=== PATIENT | female | born 1995 | race Caucasian/White ===

== ENCOUNTER 2017-09-25 23:03 | Outpatient (CLI) | payer OTHER ==
[2017-09-26 00:55] LABS: APPEARANCE,URINE SLIGHTLY-CLOUDY; BILIRUBIN,URINE NEGATIVE (NEGATIVE); COLOR,URINE YELLOW; GLUCOSE, URINE NEGATIVE (NEGATIVE); KETONES,URINE 20 mg/dL (NEGATIVE); LEUKOCYTE ESTERASE,URINE TRACE (NEGATIVE); NITRITE,URINE NEGATIVE (NEGATIVE); PROTEIN,URINE NEGATIVE (NEGATIVE); URINE SPECIFIC GRAVITY 1.019; UROBILINOGEN,URINE NEGATIVE mg/dL (<2.0)
[2017-09-26 01:16] LABS: URINE AMPHETAMINES SCREEN NEGATIVE; URINE BARBITURATES SCREEN NEGATIVE; URINE BENZODIAZEPINES SCREEN NEGATIVE; URINE COCAINE SCREEN NEGATIVE; URINE METHADONE SCREEN NEGATIVE; URINE PHENCYCLIDINE SCREEN NEGATIVE
[2017-09-26 01:18] LABS: URINE MARIJUANA (THC) SCREEN UNCONFIRMED POSITIVE
== END 2017-09-26 01:20 | disposition home or self-care (01) ==
LOC: LC 23:03
PROVIDERS: ATTEND Obstetrics & Gynecology Gynecology
PROC: 4A1HXCZ Monitoring of Products of Conception, Cardiac Rate, External Approach (ICD-10-PCS; principal; 2017-09-25)
DX: O99.89 Other specified diseases and conditions complicating pregnancy, childbirth and the puerperium (principal); M54.30 Sciatica, unspecified side; Z3A.28 28 weeks gestation of pregnancy
CPT/HCPCS: 59899; 81001; 80307; G0480 ×2

== ENCOUNTER 2018-01-02 21:14 | Outpatient (CLI) | payer OTHER ==
[2018-01-02 21:43] LABS: APPEARANCE,URINE SLIGHTLY-CLOUDY; BILIRUBIN,URINE NEGATIVE (NEGATIVE); COLOR,URINE YELLOW; GLUCOSE, URINE NEGATIVE (NEGATIVE); KETONES,URINE NEGATIVE (NEGATIVE); LEUKOCYTE ESTERASE,URINE TRACE (NEGATIVE); NITRITE,URINE NEGATIVE (NEGATIVE); PROTEIN,URINE NEGATIVE (NEGATIVE); URINE SPECIFIC GRAVITY 1.017; UROBILINOGEN,URINE NEGATIVE mg/dL (<2.0)
[2018-01-02 21:59] LABS: URINE AMPHETAMINES SCREEN NEGATIVE; URINE BARBITURATES SCREEN NEGATIVE; URINE BENZODIAZEPINES SCREEN NEGATIVE; URINE COCAINE SCREEN NEGATIVE; URINE MARIJUANA (THC) SCREEN NEGATIVE; URINE METHADONE SCREEN NEGATIVE; URINE PHENCYCLIDINE SCREEN NEGATIVE
--- NOTE | 2018-01-02 22:45 | Non Stress Test Report ---
Non Stress Test Datetime Report Generated by CPN: 01/02/2018 22:45 DEMOGRAPHIC Test Number: 1 EGA NST: 39.2 INDICATION Indication for Study: Ordered by Provider MONITORING Monitor Explained: Monitor Explained; Test Explained; Patient Verbalized Understanding Time on Monitor: 01/02/2018 21:32 Time off Monitor: 01/02/2018 22:31 NST Duration: 59 NST INTERVENTIONS NST Interventions: PO Hydration; Reposition Patient Physician Notified NST: Dr. Hardy BABY A: [id number] BABY A Movement : Present Contraction Frequency : irregular FHR Baseline : 135 Accelerations : 15X15 Decelerations : None Variability : Moderate 6-25bpm NST Review: Meets Criteria for Reactive NST NST Review and Verified By : DWAINE Freeman NST Results: Reactive NST REPORT Report Trigger: Send Report
== END 2018-01-02 22:44 | disposition home or self-care (01) ==
LOC: LC 21:14
PROVIDERS: ATTEND Obstetrics & Gynecology
PROC: 4A1HXCZ Monitoring of Products of Conception, Cardiac Rate, External Approach (ICD-10-PCS; principal; 2018-01-02)
DX: O47.1 False labor at or after 37 completed weeks of gestation (principal); Z3A.39 39 weeks gestation of pregnancy
CPT/HCPCS: 59025; 80307; 81005

== ENCOUNTER 2018-01-03 05:29 | Outpatient (CLI) | payer OTHER ==
[2018-01-03 06:18] LABS: APPEARANCE,URINE SLIGHTLY-CLOUDY; BILIRUBIN,URINE NEGATIVE (NEGATIVE); COLOR,URINE YELLOW; GLUCOSE, URINE NEGATIVE (NEGATIVE); KETONES,URINE NEGATIVE (NEGATIVE); LEUKOCYTE ESTERASE,URINE SMALL (NEGATIVE); NITRITE,URINE NEGATIVE (NEGATIVE); PROTEIN,URINE NEGATIVE (NEGATIVE); URINE SPECIFIC GRAVITY 1.017; UROBILINOGEN,URINE NEGATIVE mg/dL (<2.0)
[2018-01-03 06:26] LABS: URINE AMPHETAMINES SCREEN NEGATIVE; URINE BARBITURATES SCREEN NEGATIVE; URINE BENZODIAZEPINES SCREEN NEGATIVE; URINE COCAINE SCREEN NEGATIVE; URINE MARIJUANA (THC) SCREEN NEGATIVE; URINE METHADONE SCREEN NEGATIVE; URINE PHENCYCLIDINE SCREEN NEGATIVE
[2018-01-03] MEDS ORDERED: HYDROXYZINE PAMOATE 50 MG CAPSULE ONE (07:16)
[2018-01-03] MEDS ORDERED: HYDROXYZINE PAMOATE 50 MG CAPSULE PO ONE (07:17)
[2018-01-03 09:29] LABS: CHLAM PCR NOT DETECTED (NOT DETECT); GON PCR NOT DETECTED (NOT DETECT)
== END 2018-01-03 07:25 | disposition home or self-care (01) ==
LOC: LC 05:29
PROVIDERS: ATTEND Obstetrics & Gynecology
PROC: 4A1HXCZ Monitoring of Products of Conception, Cardiac Rate, External Approach (ICD-10-PCS; principal; 2018-01-03)
DX: O47.1 False labor at or after 37 completed weeks of gestation (principal); Z3A.39 39 weeks gestation of pregnancy
CPT/HCPCS: 59025; 80307; 81005; 87491; 87591

== ENCOUNTER 2018-01-03 12:18 | Inpatient (IN) | payer OTHER ==
[2018-01-03] MEDS ORDERED: PENICILLIN G POTASSIUM 5,000,000 UNIT in DEXTROSE 5%-WATER 100 ML IV ONE (12:22)
[2018-01-03] MEDS ORDERED: RINGERS SOLUTION,LACTATED 1,000 ML IV PRN (12:22)
[2018-01-03] MEDS ORDERED: RINGERS SOLUTION,LACTATED 1,000 ML IV ONE (12:22)
[2018-01-03] MEDS ORDERED: LIDOCAINE 1% INJ-PF (10 MG/ML) 30 ML SDV ONE (12:26)
[2018-01-03] MEDS ORDERED: MISOPROSTOL 0.2 MG TABLET ONE (12:26)
[2018-01-03] MEDS ORDERED: OXYTOCIN/NORMAL SALINE 20 UNIT/1,000 ML RTUINJ ONE (12:27)
[2018-01-03] MEDS ORDERED: PENICILLIN G-K 5 MILLION UNIT VIAL ONE ×2 (12:27→16:06)
[2018-01-03] MEDS ORDERED: EPHEDRINE SULFATE INJ 50 MG/1 ML AMPULE ONE (12:58)
[2018-01-03] MEDS ORDERED: BUPIVACAINE HCL 0.5 % INJ/PF 30 ML SDV ONE (12:59)
[2018-01-03] MEDS ORDERED: FENTANYL/BUPIVACAINE/NS/PF 300 MCG/150 ML RTUINJ EPI ONE (12:59)
--- NOTE | 2018-01-03 13:01 | Admission Physical ---
Datetime Report Generated by CPN: 01/03/2018 13:01 CURRENT ADMISSION Chief Complaint: Uterine Contractions Admit Impression : Term, Intrauterine ; Active Labor; Intact Membranes Admit Plan: Admit to Unit; Initiate Labor Protocol ALLERGIES Medication Allergies: No Medication Allergies: No Known Allergies (01/03/2018) Latex: No Latex Allergies Food Allergies: cashews Environmental Allergies: N/A OBSTETRICAL HISTORY EDC: 01/07/2018 00:00 : 3 Para: 0 Term: 0 : 0 SAB: 2 IAB: 0 Ectopic: 0 Livin Cesareans: 0 VBACs: 0 Multiple Births: 0 Gestational Diabetes: No Rh Sensitization: No Incompetent Cervix: No JCARLOS: No Infertility: No ART Treatment: No Uterine Anomaly: No IUGR: No Hx Previous C/S: No Macrosomia: No Hx Loss/Stillborn: No PIH: No Hx : No Placenta Previa/Abruption: No Depression/PP Depression: No PTL/PROM: No Post Hemorrhage: No Current Procedures: Ultrasound; NST Obstetrical History Comments: G1- SAB G2-SAB G3-current (Annotations: Data stored by [facility] on behalf of user) SEE RECORDS Alcohol: No Marijuana : No Cocaine: No Other Illicit Drugs: No Cigarettes: Never Smoker. [id number] MEDICAL HISTORY Diabetes: No Blood Transfusion: No Pulmonary Disease (Asthma, TB): No Breast Disease: No Hypertension: No Natural Gas Technician Surgery: No Heart Disease: No Hosp/Surgery: No Autoimmune Disorder: No Anesthetic Complications: No Kidney Disease: No Abnormal Pap Smear: No Neuro/Epilepsy: No Psychiatric Disorders: No Other Medical Diseases: No Hepatitis/Liver Disease: No Significant Family History: No Varicosities/Phlebitis: No Trauma/Violence : No Thyroid Dysfunction: No INFECTIOUS HISTORY Gonorrhea: No Genital Herpes: No Chlamydia: No Tuberculosis: No Syphilis: No Hepatitis: No HIV/AIDS Exposure: No Rash or Viral Illness: No HPV: No PHYSICAL EXAM General: Normal HEENT: Normal Neurologic: Normal Thyroid: Deferred Heart: Normal Lungs: Normal Breast: Deferred Back: Normal Abdomen: Normal Genitourinary Exam: Normal Extremities: Normal DTRs: Normal Pelvic Type: Adequate Vital Signs: Reviewed VAGINAL EXAM Dilatation: 6 Effacement: 80 Station: -1 Contraction Comments: q 2-3 MEMBRANES Membranes: Intact FETUS A EGA: 39.3 Monitoring: External US FHR- Baseline: 125 Variability: Moderate 6-25bpm Accelerations: 15X15 Decelerations: None Presentation: Vertex Admit Comment: 22yo at 39+3ega presents for regular uterine contractions in active labor. HICL patient who was late to care - dated by US at 29wks. Unsure LMP. Rh negative. Rhogam given at 10/15/2017. Varicella NI - needs vaccination pp. GBS unknown due to poor compliance with care. PCN for GBS prophy. Platlets 170 on 01/01/2018. Pt desires epidural. Antcipate . PLANS FOR LABOR AND DELIVERY Labor and Delivery: None Pain Management: None Feeding Preference: Breast Benefit of Breast Feed Discussed: Yes INFORMED CONSENT Informed Consent Obtained: Vaginal Delivery; Risks, Benefits and Alternatives Discussed Signature: with User ID: [email or web address]
[2018-01-03 14:15] LABS: HEMATOCRIT 33.7 % (36.0-47.0); HEMOGLOBIN 11.5 g/dL (12.0-15.5); MEAN CORPUSCULAR HEMOGLOBIN 29.4 pg (27.0-33.4); MEAN CORPUSCULAR HGB CONC 34.2 g/dL (32.0-36.0); MEAN CORPUSCULAR VOLUME 86 fl (80-97); PLATELET COUNT 195 10^3/uL (150-450); RED BLOOD COUNT 3.92 10^6/uL (3.72-5.28); RED CELL DISTRIBUTION WIDTH 14.6 % (11.5-14.0); WHITE BLOOD COUNT 19.3 10^3/uL (4.0-10.5)
[2018-01-03 14:32] LABS: ABSOLUTE MONOCYTES # (MANUAL) 0.6 10^3/uL (0.1-1.4); ABSOLUTE NEUTROPHILS# (MANUAL) 17.8 10^3/uL (1.7-8.2); BAND NEUTROPHILS % (MANUAL) 1 % (3-5); BASOPHILS % (MANUAL) 0 % (0-2); EOSINOPHILS % (MANUAL) 0 % (0-6); LYMPHOCYTES % (MANUAL) 5 % (13-45); MONOCYTES % (MANUAL) 3 % (3-13); SEGMENTED NEUTROPHILS % (MAN) 91 % (42-78); TOTAL CELLS COUNTED 100
[2018-01-03 14:33] LABS: ANISOCYTOSIS SLIGHT; OVALOCYTES 1+; PLATELET COMMENT ADEQUATE; POIKILOCYTOSIS 1+; TEAR DROP CELLS SLIGHT
[2018-01-03] MEDS ORDERED: NORMAL SALINE 250 ML IV PRN (15:01)
[2018-01-03] MEDS: PENICILLIN G POTASSIUM 2,500,000 UNIT in DEXTROSE 5%-WATER 50 ML IV SCH ×2 (16:18→23:08)
[2018-01-03] MEDS ORDERED: OXYTOCIN/NORMAL SALINE 20 UNIT/1,000 ML RTUINJ IV PRN ×2 (17:01→20:39)
[2018-01-03] MEDS ORDERED: MAG HYDROX/AL HYDROX/SIMETH SUSP 30 ML UDCUP ONE (18:24)
[2018-01-03] MEDS ORDERED: ZOLPIDEM TARTRATE 5 MG TABLET PO PRN (20:39)
[2018-01-03] MEDS ORDERED: PROMETHAZINE HCL 25 MG TABLET PO PRN (20:39)
[2018-01-03] MEDS ORDERED: NA PHOS,M-B/NA PHOS,DI-BA (ADULT) 133 ML ENEMA PR PRN (20:39)
[2018-01-03] MEDS ORDERED: MEASLES,MUMPS&RUBELLA VACC/PF 0.5 ML VIAL SUBCUT PRN (20:39)
[2018-01-03] MEDS ORDERED: PROMETHAZINE HCL 25 MG SUPP.RECT PR PRN (20:39)
[2018-01-03] MEDS ORDERED: DIBUCAINE 1% OINTMENT 28 GM TP PRN (20:39)
[2018-01-03] MEDS ORDERED: DIPH/PERTUSS(ACELL)/TETANUS VAC/PF 0.5 ML SYR (>=10YO) IM PRN (20:39)
[2018-01-03] MEDS ORDERED: MAGNESIUM HYDROXIDE SUSP 30 ML UDCUP PO PRN (20:39)
[2018-01-03] MEDS ORDERED: MISOPROSTOL 0.2 MG TABLET PR ONE (20:39)
[2018-01-03] MEDS ORDERED: ACETAMINOPHEN WITH CODEINE #3 TABLET PO PRN ×2 (20:39)
[2018-01-03] MEDS ORDERED: PROMETHAZINE HCL INJ 25 MG/1 ML VIAL IV PRN (20:39)
[2018-01-03] MEDS ORDERED: PSEUDOEPHEDRINE HCL 30 MG TABLET PO PRN (20:39)
[2018-01-03] MEDS ORDERED: ACETAMINOPHEN 325 MG TABLET PO PRN (20:39)
[2018-01-03] MEDS ORDERED: DIPHENHYDRAMINE HCL 25 MG CAPSULE PO PRN (20:39)
[2018-01-03] MEDS ORDERED: GLYCERIN/WITCH HAZEL LEAF 1 EACH MED..PAD TP PRN (20:39)
[2018-01-03] MEDS ORDERED: BENZOCAINE/MENTHOL AEROSOL SPRAY 56 ML TOP PRN (20:39)
--- NOTE | 2018-01-03 20:40 | Warning Signs in Babies ---
VOD Warning Signs Datetime Report Generated by [facility]: 01/03/2018 20:40 VOD#608 -Warning Signs in Babies: Needs to be viewed. (09/25/2017 23:24:Siomara Blackburn RN)
--- NOTE | 2018-01-03 22:05 | Delivery Summary ---
Del Sum A-C Datetime Report Generated by CPN: 01/03/2018 22:05 DELIVERY PERSONNEL DELIVERY PERSONNEL: [id number] Delivery Doctor:: Merry Oneal MD Anesthesiologist:: Esau Adhikari MD Labor and Delivery Nurse:: Siomara Blackburn RNfender mechanic apprentice Nurse:: Ml Toure RN Restaurant Delivery Driver:: Krystal Corrigan RN Nursery Nurse:: Gloria Wayne RN Manager Lvn/TEARER PRESS CLIPPING: Marianne Enamorado, PLASTER APPLICATOR MATERNAL INFORMATION Delivery Anesthesia: Epidural Medications After Delivery: Pitocin Drip 20 Units/1000ml NSS; Cytotec 1000mcg Per Rectum/Vagina Estimated Blood Loss (ml): 300 Maternal Complications: None Provider Comments: VMI delivered in ELKE presentation with loose nuchal cord reduced easily. Shoulders and body delivered without difficulty. Cord doubly clamped and cut and infant to maternal abd for NRP. FF at U. Good hemostasis. laceration repaired in usual fashion. Mother and baby stable upon provider leaving the room. LABOR SUMMARY EDC: 01/07/2018 00:00 No. Babies in Womb: 1 Attempted: No Labor Anesthesia: Epidural LABOR INFORMATION Reason for Induction: Not Applicable Onset of Labor: 01/03/2018 12:25 Complete Dilatation: 01/03/2018 18:45 Oxytocin: Augmentation Group B Beta Strep: unknown Antibiotics # of Doses: 2 Antibiotics Time of Last Dose: 1612 Name of Antibiotic Given: Penicillin Steroids Given: None Reason Steroids Not Administered: Not Applicable MEMBRANES Membranes Rupture Method: Artificial Rupture of Membranes: 01/03/2018 16:26 Length of Rupture (hr): 3.47 Amniotic Fluid Color: Clear Amniotic Fluid Amount: Small STAGES OF LABOR Stage 1 hr: 6 Stage 1 min: 20 Stage 2 hr: 1 Stage 2 min: 9 Stage 3 hr: 0 Stage 3 min: 2 Total Time in Labor hr: 7 Total Time in Labor min: 31 VAGINAL DELIVERY Episiotomy: None Laceration #1: Vaginal Laceration Extension #1: Second Degree Laceration Repair: Yes Laceration Repair Note: 2nd degree and left vaginal sidewall laceration repaired in the usual fashion Sponge Count Correct: Yes Sharps Count Correct: Yes CSECTION DELIVERY Primary Indication: N/A Secondary Indication: N/A CSection Incidence: N/A Labor: N/A Elective: N/A CSection Incision: N/A BABY A INFORMATION Infant Delivery Date/Time: 01/03/2018 19:54 Method of Delivery: Vaginal Born in Route : No : N/A Forceps: N/A Vacuum Extraction: N/A Shoulder Dystocia : No PRESENTATION/POSITION BABY A Presentation: Cephalic Cephalic Presentation: Vertex Vertex Position: Right Occipital Anterior Breech Presentation: N/A PLACENTA INFORMATION BABY A Placenta Delivery Time : 01/03/2018 19:56 Placenta Method of Delivery: Spontaneous Placenta Status: Delivered SCORES BABY A Heart Rate 1 min: >100 bpm Resp Effort 1 min: Good Cry Reflex Irritability 1 min: Cough or Sneeze or Pulls Away Muscle Tone 1 min: Active Motion Color 1 min: Body [place], Extremities Blue Resuscitation Effort 1 min: Tactile Stimulation SCORE 1 MIN: 9 Heart Rate 5 min: >100 bpm Resp Effort 5 min: Good Cry Reflex Irritability 5 min: Cough or Sneeze or Pulls Away Muscle Tone 5 min: Active Motion Color 5 min: Body [place], Extremities Blue Resuscitation Effort 5 min: Tactile Stimulation SCORE 5 MIN: 9 INFORMATION BABY A Gestational Age at Delivery: 39.3 Gestational Status: Full Term- 39- 40.6 Weeks Outcome : Liveborn Condition : Stable Infant Sex: Male IDENTIFICATION BABY A Verification Date/Time: 01/03/2018 20:00 ID Band Number: [id number] Mother's Name Verified: Yes RN Verifying : J, RN Additional Verifying Personnel: F.Enamorado, ST WEIGHT/LENGTH BABY A Infant Birthweight (gm): 3430 Weight (lb): 7 Weight (oz): 9 Infant Length (in): 21.00 Infant Length (cm): 53.34 CORD INFORMATION BABY A No. Cord Vessels: 3 Nuchal Cord : Around Neck x1, Loose Cord Blood Taken: Yes-For Eval (Mom's Blood Type - or O+) Suction: None ASSESSMENT BABY A Complications: Multiple Late Decels Physical Findings at Delivery: Within Normal Limits Respirations: Appears Normal Skin to Skin: Yes Digital Media Specialist/ALS Called : No Infant Care By: L. Rosana RN Transferred To: Remains with Mother BABY B INFORMATION : N/A SIGNATURES Signature: with User ID: [email or web address]
[2018-01-03] MEDS: FAMOTIDINE 20 MG TABLET PO SCH (23:11)
[2018-01-03] MEDS: IBUPROFEN 800 MG TABLET PO SCH (23:11)
[2018-01-04] MEDS: PENICILLIN G POTASSIUM 2,500,000 UNIT in DEXTROSE 5%-WATER 50 ML IV SCH ×2 (02:19→05:27)
[2018-01-04] MEDS: IBUPROFEN 800 MG TABLET PO SCH ×3 (05:28→22:02)
[2018-01-04 07:51] LABS: HEMATOCRIT 31.5 % (36.0-47.0); HEMOGLOBIN 10.5 g/dL (12.0-15.5); MEAN CORPUSCULAR HEMOGLOBIN 29.2 pg (27.0-33.4); MEAN CORPUSCULAR HGB CONC 33.5 g/dL (32.0-36.0); MEAN CORPUSCULAR VOLUME 87 fl (80-97); PLATELET COUNT 194 10^3/uL (150-450); RED BLOOD COUNT 3.61 10^6/uL (3.72-5.28); RED CELL DISTRIBUTION WIDTH 14.7 % (11.5-14.0); WHITE BLOOD COUNT 16.1 10^3/uL (4.0-10.5)
[2018-01-04] MEDS: PRENATAL VITAMIN W DHA CAPSULE PO SCH (09:28)
[2018-01-04] MEDS: FERROUS SULFATE 325 MG TABLET PO SCH ×2 (09:28→17:59)
[2018-01-04] MEDS: SENNOSIDES/DOCUSATE 8.6-50 MG 1 EACH TABLET PO SCH (09:28)
[2018-01-04] MEDS: DOCUSATE SODIUM 100 MG CAPSULE PO SCH ×2 (09:28→17:59)
[2018-01-04] MEDS: FAMOTIDINE 20 MG TABLET PO SCH ×2 (09:28→22:02)
[2018-01-04] MEDS ORDERED: PENICILLIN G-K 5 MILLION UNIT VIAL IV SCH (10:00)
--- NOTE | 2018-01-04 11:08 | PDOC PROGRESS REPORT ---
Subjective-OB Progress Note for:: 01/04/18 Subjective: tolerating diet, voiding without difficulty, bleeding slowing, pain controlled with current meds, no needs expressed, without difficulty Physical Exam (OB) Vital Signs: Temp Pulse Resp BP Pulse Ox 97.8 F 70 16 98/55 L 100 01/04/18 07:28 01/04/18 07:28 01/04/18 07:28 01/04/18 07:28 01/04/18 07:28 Intake & Output 01/03/18 01/04/18 01/05/18 06:59 06:59 06:59 Intake Total 2150 Balance 2150 Weight 64.5 kg - Abdomen Description: Soft, Flat Fundal Description: Firm, Midline Fundal Height: u/u - u/2 - Abdominal Distension: No distension Tenderness: Nontender - Extremities Lower extremities: Catrachito's sign - neg Calf: Normal, Nontender Objective-Diagnostic Laboratory: 01/04/18 07:37 01/03/18 01/03/18 01/04/18 13:49 13:58 07:37 WBC 19.3 H 16.1 H RBC 3.92 3.61 L Hgb 11.5 L 10.5 L Hct 33.7 L 31.5 L MCV 86 87 MCH 29.4 29.2 MCHC 34.2 33.5 RDW 14.6 H 14.7 H Plt Count 195 194 Seg Neutrophils % Not Reportable Lymphocytes % Not Reportable Monocytes % Not Reportable Eosinophils % Not Reportable Basophils % Not Reportable Absolute Neutrophils Not Reportable Absolute Lymphocytes Not Reportable Absolute Monocytes Not Reportable Absolute Eosinophils Not Reportable Absolute Basophils Not Reportable Blood Type A NEGATIVE Antibody Screen POSITIVE Assessment and Plan(PN) - Assessment and Plan (1) Normal vaginal delivery Is this a current diagnosis for this admission?: Yes - Time Spent with Patient Time with patient: Less than 15 minutes Medications reviewed and adjusted accordingly: Yes - Disposition Anticipated Discharge: Home Within: within 24 hours
[2018-01-04] MEDS ORDERED: VARICELLA VACC/PF (1350 UNIT/0.5 ML) 0.5 ML VIAL SUBCUT ONE (12:00)
[2018-01-04] MEDS ORDERED: VARICELLA VACC/PF (1350 UNIT/0.5 ML) 0.5 ML VIAL SUBCUT PRN (12:18)
[2018-01-05] MEDS: IBUPROFEN 800 MG TABLET PO SCH ×2 (06:02→15:24)
[2018-01-05] MEDS: PRENATAL VITAMIN W DHA CAPSULE PO SCH (09:36)
[2018-01-05] MEDS: FAMOTIDINE 20 MG TABLET PO SCH (09:36)
[2018-01-05] MEDS: DOCUSATE SODIUM 100 MG CAPSULE PO SCH (09:36)
[2018-01-05] MEDS: FERROUS SULFATE 325 MG TABLET PO SCH (09:36)
[2018-01-05] MEDS: SENNOSIDES/DOCUSATE 8.6-50 MG 1 EACH TABLET PO SCH (09:36)
--- NOTE | 2018-01-05 10:04 | PDOC DISCHARGE SUMMARY ---
Final Diagnosis Discharge Date: 01/05/18 - Final Diagnosis (1) Normal vaginal delivery Is this a current diagnosis for this admission?: Yes Discharge Data - Discharge Medication Prescriptions: Ibuprofen [Motrin 800 mg Tablet] 800 mg PO Q8 #60 tablet Home Medications: Prenat 115/Iron Fum/Folic/Dss [ 19 Tablet] 1 each PO DAILY 09/25/17 Ibuprofen [Motrin 800 mg Tablet] 800 mg PO Q8 #60 tablet 01/05/18 Reason(s) for Admission: Onset of Labor Intrapartum Procedure(s): Spontaneous Vaginal Delivery Laceration-Degree: 2nd - Diagnosis Test Laboratory: Temp Pulse Resp BP Pulse Ox 97.5 F 66 15 109/64 98 01/05/18 08:12 01/05/18 08:12 01/05/18 08:12 01/05/18 08:12 01/05/18 08:12 01/03/18 01/04/18 13:49 07:37 RBC 3.92 3.61 L Hgb 11.5 L 10.5 L Hct 33.7 L 31.5 L - Discharge information/Instructions Discharge Activity: Balance Activity w/Rest, Pelvic Rest Discharge Diet: Regular Disposition: HOME, SELF-CARE Follow up with: [facility] [place]
[2018-01-05 14:34] VITALS: BP 105/63
== END 2018-01-05 15:55 | disposition home or self-care (01) | DRG 807 ==
LOC: LC 12:18 → LR 12:27 → 2S 22:12
PROVIDERS: ADMIT Student in an Organized Health Care Education/Training Program; ATTEND Student in an Organized Health Care Education/Training Program
PROC: 10E0XZZ Delivery of Products of Conception, External Approach (ICD-10-PCS; principal; 2018-01-03)
PROC: 0KQM0ZZ Repair Perineum Muscle, Open Approach (ICD-10-PCS; 2018-01-03)
PROC: 3E0234Z Introduction of Serum, Toxoid and Vaccine into Muscle, Percutaneous Approach (ICD-10-PCS; 2018-01-05)
DX: O36.0930 Maternal care for other rhesus isoimmunization, third trimester, not applicable or unspecified (principal); Z37.0 Single live birth; O69.81X0 Labor and delivery complicated by cord around neck, without compression, not applicable or unspecified; O70.1 Second degree perineal laceration during delivery; O76 Abnormality in fetal heart rate and rhythm complicating labor and delivery; Z3A.39 39 weeks gestation of pregnancy; Z23 Encounter for immunization
CPT/HCPCS: 36415; 85025; 85027; 86592; 86850; 86870; 86900; 86901; 86920; 86922; 90471; 90686; 90715; 94760; G0008; J2540; J2590; J3010; J3490

== ENCOUNTER 2018-10-24 22:10 | Emergency (ER) | payer OTHER ==
[2018-10-24 22:33] VITALS: BP 124/93
== END 2018-10-25 01:20 | disposition left against medical advice (07) ==
LOC: ER 22:10
DX: T14.8XXA Other injury of unspecified body region, initial encounter (principal); W54.0XXA Bitten by dog, initial encounter

== ENCOUNTER 2018-10-28 01:37 | Emergency (ER) | payer BC, OTHER ==
--- NOTE | 2018-10-28 02:59 | RADIOLOGY REPORT (SQ) ---
EXAM DESCRIPTION: XR HAND 3 OR MORE VIEWS COMPLETED DATE/TME: 10/28/2018 00:00 CLINICAL HISTORY: Pain. 23 years Female, dog bite COMPARISON: None. Findings: Known soft tissue injury; no radioopaque foreign body. Bones, joints, and soft tissues of the RIGHT XR HAND 3 OR MORE VIEWS appear otherwise intact. IMPRESSION: Soft tissue injury; else, no acute findings. .
[2018-10-28] MEDS ORDERED: AMOXICILLIN TR/POT CLAVULANATE 500-125 MG TAB PO ONE (03:48)
[2018-10-28] MEDS ORDERED: ACETAMINOPHEN 325 MG TABLET PO ONE (03:48)
[2018-10-28] MEDS ORDERED: AMOXICILLIN TRIHYD 250 MG CAPSULE PO ONE (03:48)
[2018-10-28 04:09] VITALS: BP 122/78
--- NOTE | 2018-10-28 04:17 | ER Document Report ---
ED Animal Bite - General Chief Complaint: Dog Bite Stated Complaint: RIGHT HAND PAIN Time Seen by Provider: 10/28/18 02:59 Notes: Patient is otherwise healthy 23-year-old female presents to the emergency department for a dog bite on her right wrist. States this happened on around 2129. States it was her pet bowl. States her dog was fighting with another dog and she tried to separate them. States the dog is up-to-date on his immunization and patient is also up-to-date on her tetanus. Patient states she presents to the emergency department based on pain. States that she thinks she might have broken her hands based on the bruising. Patient states she has been cleaning the site with soap and water. Patient's denying any fevers. TRAVEL OUTSIDE OF THE [place] IN LAST 30 DAYS: No - Related Data Allergies/Adverse Reactions: No Known Allergies Allergy (Verified 01/03/18 15:06) Past Medical History - General Information source: Patient - Social History Smoking Status: Current Every Day Smoker Chew tobacco use (# tins/day): No Frequency of alcohol use: Occasional Drug Abuse: None, Marijuana Family History: Reviewed & Not Pertinent Patient has suicidal ideation: No Patient has homicidal ideation: No Renal/ Medical History: Denies: Hx Peritoneal Dialysis Review of Systems - Review of Systems Constitutional: denies: Fever EENT: No symptoms reported Cardiovascular: No symptoms reported Respiratory: No symptoms reported Gastrointestinal: No symptoms reported Genitourinary: No symptoms reported Female Genitourinary: No symptoms reported Musculoskeletal: See HPI Skin: See HPI Hematologic/Lymphatic: No symptoms reported Neurological/Psychological: No symptoms reported Physical Exam - Vital signs Vitals: Temp Pulse Resp BP Pulse Ox 98.3 F 84 16 118/77 97 10/28/18 01:42 10/28/18 01:42 10/28/18 01:42 10/28/18 01:42 10/28/18 01:42 - Notes Notes: GENERAL: Alert, interacts well. No acute distress. HEAD: Normocephalic, atraumatic. EYES: Pupils equal, round, and reactive to light. Extraocular movements intact. ENT: Oral mucosa moist, tongue midline. NECK: Full range of motion. Supple. Trachea midline. LUNGS: Clear to auscultation bilaterally, no wheezes, rales, or rhonchi. No respiratory distress. HEART: Regular rate and rhythm. No murmur ABDOMEN: Soft, non-tender. Non-distended. Bowel sounds present in all 4 quadrants. EXTREMITIES: Moves all 4 extremities spontaneously. normal radial and dorsalis pedis pulses bilaterally. Full range of motion all 5 fingers on the right hand, limited range of motion right wrist secondary due to pain. Capillary refill less than 2 seconds all 5 fingers on the right hand. BACK: no cervical, thoracic, lumbar midline tenderness. No saddle anesthesia, normal distal neurovascular exam. NEUROLOGICAL: Alert and oriented x3. Normal speech. cranial nerves II through XII grossly intact PSYCH: Normal affect, normal mood. SKIN: Warm, dry, normal turgor. Multiple puncture wounds noted anterior and posterior right wrist. Swelling noticed to the dorsal aspect of right wrist with ecchymosis. Erythema surrounding puncture wounds noted. Slight erythema noted anterior aspect of her right forearm. Course - Re-evaluation Re-evalutation: 10/28/18 04:11 Patient was given initial dose of Augmentin in the emergency department. Surgical marker was placed around the redness noted to the anterior aspect of he r right forearm. I discussed at length with patient's IV antibiotics and admission versus trial of home antibiotics. Patient states she has a daughter at home and she is unable to stay in the hospital. I discussed with her at length need for oral antibiotics and for close return precautions. Patient voices understanding and states she will return to the emergency room should the redness or swelling get worse. At this time will discharge with return precautions and follow-up recommendations. Verbal discharge instructions given a the bedside and opportunity for questions given. Medication warnings reviewed. Patient is in agreement with this plan and has verbalized understanding of return precautions and the need for primary care follow-up in the next 24-72 hours. This medical record was dictated with voice recognizing software. There may be grammatical, syntax errors that are unintended. - Vital Signs Vital signs: Temp Pulse Resp BP Pulse Ox 98.2 F 82 16 122/78 100 10/28/18 04:08 10/28/18 04:08 10/28/18 04:08 10/28/18 04:08 10/28/18 04:08 Discharge - Discharge Clinical Impression: Dog bite Qualifiers: Encounter type: initial encounter Qualified Code(s): W54.0XXA - Bitten by dog, initial encounter Condition: Stable Disposition: HOME, SELF-CARE Instructions: Animal Bites ([facility]) Additional Instructions: As we discussed you have been seen and treated in the emergency department for a dog bite to right wrist. As we discussed you need antibiotics. Please make sure you are taking antibiotics as prescribed. Please make sure after 24 to 48 hours of antibiotic use if your redness, swelling has increased you immediately return to the emergency room. Please also make sure you return to the emergency room for any further concerns. Prescriptions: Amox Tr/Potassium Clavulanate [Augmentin 875-125 Tablet] 1 tab PO BID 10 Days tablet Forms: Return to Work
== END 2018-10-28 04:33 | disposition home or self-care (01) ==
LOC: ER 01:37
DX: M79.641 Pain in right hand (principal); W54.0XXA Bitten by dog, initial encounter; Y92.009 Unspecified place in unspecified non-institutional (private) residence as the place of occurrence of the external cause; F17.200 Nicotine dependence, unspecified, uncomplicated
CPT/HCPCS: 73130; J3490; 99283

== ENCOUNTER 2020-02-28 10:56 | Inpatient (IN) | payer OTHER ==
[2020-02-28] MEDS ORDERED: OXYTOCIN/0.9 % SODIUM CHLORIDE 30 UNIT/500 ML RTUINJ ONE (11:24)
[2020-02-28] MEDS ORDERED: LIDOCAINE 1% INJ-PF (10 MG/ML) 30 ML SDV ONE (11:24)
[2020-02-28] MEDS ORDERED: MISOPROSTOL 0.2 MG TABLET ONE (11:24)
--- NOTE | 2020-02-28 11:41 | Admission Physical ---
Datetime Report Generated by CPN: 02/28/2020 11:41 CURRENT ADMISSION Hx Assessment: The History has been Reviewed and is Current Chief Complaint: Uterine Contractions Chief Complaint Other: Contractions began at 0430 and have increased in strength and frequency Good FM Admit Impression : Term, Intrauterine ; Active Labor Admit Plan: Admit to Unit; Initiate Labor Protocol ALLERGIES Medication Allergies: No Medication Allergies: No Known Allergies (01/03/2018) Latex: No Latex Allergies Food Allergies: cashews OBSTETRICAL HISTORY EDC: 02/28/2020 00:00 : 2 Para: 1 Term: 1 : 0 SAB: 0 IAB: 0 Ectopic: 0 Livin Cesareans: 0 VBACs: 0 Multiple Births: 0 Gestational Diabetes: No Rh Sensitization: No Incompetent Cervix: No JCARLOS: No Infertility: No ART Treatment: No Uterine Anomaly: No IUGR: No Hx Previous C/S: No Macrosomia: No Hx Loss/Stillborn: No PIH: No Hx : No Placenta Previa/Abruption: No Depression/PP Depression: No PTL/PROM: No Post Hemorrhage: No Current Procedures: Ultrasound Obstetrical History Comments: G1- G2- current SEE RECORDS Alcohol: No Marijuana : No Cocaine: No Other Illicit Drugs: No Cigarettes: Never Smoker. 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: No Heart Disease: No Hosp/Surgery: Yes Autoimmune Disorder: No Anesthetic Complications: No Kidney Disease: No Abnormal Pap Smear: No Neuro/Epilepsy: No Psychiatric Disorders: No Other Medical Diseases: No Hepatitis/Liver Disease: No Significant Family History: No Varicosities/Phlebitis: No Trauma/Violence : No Thyroid Dysfunction: No Medical History Comments: childbirth INFECTIOUS HISTORY Gonorrhea: No Genital Herpes: No Chlamydia: No Tuberculosis: No Syphilis: No Hepatitis: No HIV/AIDS Exposure: No Rash or Viral Illness: No HPV: No PHYSICAL EXAM General: Normal HEENT: Normal Neurologic: Normal Thyroid: Normal Heart: Normal Lungs: Normal Breast: Normal Back: Normal Abdomen: Normal Genitourinary Exam: Normal Extremities: Normal DTRs: Normal Pelvic Type: Adequate Vital Signs: Reviewed; Within Normal Limits VAGINAL EXAM Dilatation: 5 Effacement: 100 Station: 0 Contraction Comments: regular Q 2 minutes FETUS A EGA: 40.0 Monitoring: External US FHR- Baseline: 125 Variability: Moderate 6-25bpm Accelerations: 15X15 Decelerations: None FHR Category: Category I Presentation: Vertex Admit Comment: at 40.0 wks EGA in active labor -Admit to LDR -NPO and IVFs: LR at 125 cc/hr after 1 liter bolus -CEFM and toco -GBS negative -Hx one prior -anticipate PLANS FOR LABOR AND DELIVERY Labor and Delivery: None Pain Management: Epidural Feeding Preference: Both Benefit of Breast Feed Discussed: Yes Circumcision: Yes INFORMED CONSENT Informed Consent Obtained: Vaginal Delivery; Section Delivery; Vacuum/Forceps Assist; Risks, Benefits and Alternatives Discussed Signature: with User ID: [email or web address] : with User ID: [email or web address]
[2020-02-28 11:58] LABS: ABSOLUTE BASOPHILS # (AUTO) 0.1 10^3/uL (0.0-0.2); ABSOLUTE EOSINOPHILS # (AUTO) 0.1 10^3/uL (0.0-0.6); ABSOLUTE LYMPHOCYTES (AUTO) 2.3 10^3/uL (0.5-4.7); ABSOLUTE MONOCYTES (AUTO) 1.2 10^3/uL (0.1-1.4); ABSOLUTE NEUT (AUTO) 14.5 10^3/uL (1.7-8.2); BASOPHILS % (AUTO) 0.8 % (0-2); EOSINOPHILS % (AUTO) 0.3 % (0-6); HEMATOCRIT 32.2 % (36.0-47.0); HEMOGLOBIN 10.8 g/dL (12.0-15.5); LYMPHOCYTES % (AUTO) 12.9 % (13-45); MEAN CORPUSCULAR HEMOGLOBIN 27.9 pg (27.0-33.4); MEAN CORPUSCULAR HGB CONC 33.5 g/dL (32.0-36.0); MEAN CORPUSCULAR VOLUME 84 fl (80-97); MONOCYTES % (AUTO) 6.4 % (3-13); PLATELET COUNT 222 10^3/uL (150-450); RED BLOOD COUNT 3.86 10^6/uL (3.72-5.28); RED CELL DISTRIBUTION WIDTH 13.6 % (11.5-14.0); SEGMENTED NEUTROPHILS % (AUTO) 79.6 % (42-78); TOTAL CELLS COUNTED % (AUTO) 100 %; WHITE BLOOD COUNT 18.2 10^3/uL (4.0-10.5)
[2020-02-28] MEDS ORDERED: ROPIVACAINE HCL 0.2% INJ/PF (2 MG/ML) 20 ML SDV ONE (12:05)
[2020-02-28] MEDS ORDERED: FENTANYL/BUPIVACAINE/NS/PF 300 MCG/150 ML RTUINJ EPI ONE (12:05)
[2020-02-28] MEDS ORDERED: EPHEDRINE SULFATE INJ 50 MG/1 ML AMPULE ONE (12:05)
[2020-02-28] MEDS ORDERED: DIPHENHYDRAMINE HCL 25 MG CAPSULE PO PRN (13:27)
[2020-02-28] MEDS ORDERED: PROMETHAZINE HCL 25 MG SUPP.RECT PR PRN (13:27)
[2020-02-28] MEDS ORDERED: GLYCERIN/WITCH HAZEL LEAF 1 EACH MED..WIPE TP PRN (13:27)
[2020-02-28] MEDS ORDERED: ZOLPIDEM TARTRATE 5 MG TABLET PO PRN (13:27)
[2020-02-28] MEDS ORDERED: PROMETHAZINE HCL INJ 25 MG/1 ML VIAL IV PRN (13:27)
[2020-02-28] MEDS ORDERED: NA PHOS,M-B/NA PHOS,DI-BA (ADULT) 133 ML ENEMA PR PRN (13:27)
[2020-02-28] MEDS ORDERED: ACETAMINOPHEN 650 MG SUPP.RECT PR PRN (13:27)
[2020-02-28] MEDS ORDERED: MEASLES,MUMPS&RUBELLA VACC/PF 0.5 ML VIAL SUBCUT PRN (13:27)
[2020-02-28] MEDS ORDERED: PROMETHAZINE HCL 25 MG TABLET PO PRN (13:27)
[2020-02-28] MEDS ORDERED: BENZOCAINE/MENTHOL AEROSOL SPRAY 56 ML TOP PRN (13:27)
[2020-02-28] MEDS ORDERED: DIPH/PERTUSS(ACELL)/TETANUS VAC/PF 0.5 ML SYR (>=10YO) IM PRN (13:27)
[2020-02-28] MEDS ORDERED: ACETAMINOPHEN WITH CODEINE #3 TABLET PO PRN ×2 (13:27)
[2020-02-28] MEDS ORDERED: PSEUDOEPHEDRINE HCL 30 MG TABLET PO PRN (13:27)
[2020-02-28] MEDS ORDERED: OXYTOCIN/0.9 % SODIUM CHLORIDE 30 UNIT/500 ML RTUINJ IV PRN (13:27)
[2020-02-28] MEDS ORDERED: MAGNESIUM HYDROXIDE SUSP 30 ML UDCUP PO PRN (13:27)
[2020-02-28] MEDS ORDERED: DIBUCAINE 1% OINTMENT 28 GM TP PRN (13:27)
[2020-02-28] MEDS ORDERED: ACETAMINOPHEN 325 MG TABLET PO PRN (13:27)
[2020-02-28 13:50] LABS: HEMATOCRIT 31.5 % (36.0-47.0); HEMOGLOBIN 10.3 g/dL (12.0-15.5); MEAN CORPUSCULAR HEMOGLOBIN 27.8 pg (27.0-33.4); MEAN CORPUSCULAR HGB CONC 32.8 g/dL (32.0-36.0); MEAN CORPUSCULAR VOLUME 85 fl (80-97); PLATELET COUNT 187 10^3/uL (150-450); RED BLOOD COUNT 3.72 10^6/uL (3.72-5.28); RED CELL DISTRIBUTION WIDTH 13.5 % (11.5-14.0); WHITE BLOOD COUNT 19.5 10^3/uL (4.0-10.5)
[2020-02-28 13:50] LABS: APPEARANCE,URINE CLEAR; BILIRUBIN,URINE NEGATIVE (NEGATIVE); COLOR,URINE YELLOW; GLUCOSE, URINE NEGATIVE (NEGATIVE); KETONES,URINE 80 mg/dL (NEGATIVE); LEUKOCYTE ESTERASE,URINE NEGATIVE (NEGATIVE); NITRITE,URINE NEGATIVE (NEGATIVE); PROTEIN,URINE 100 mg/dL (NEGATIVE); URINE SPECIFIC GRAVITY 1.026; UROBILINOGEN,URINE NEGATIVE mg/dL (<2.0)
[2020-02-28 14:21] LABS: URINE AMPHETAMINES SCREEN NEGATIVE; URINE BARBITURATES SCREEN NEGATIVE; URINE BENZODIAZEPINES SCREEN NEGATIVE; URINE COCAINE SCREEN NEGATIVE; URINE MARIJUANA (THC) SCREEN NEGATIVE; URINE METHADONE SCREEN NEGATIVE; URINE PHENCYCLIDINE SCREEN NEGATIVE
--- NOTE | 2020-02-28 17:33 | Delivery Summary ---
Del Sum A-C Datetime Report Generated by CPN: 02/28/2020 17:33 DELIVERY PERSONNEL DELIVERY PERSONNEL: [id number] Delivery Doctor:: Krystal Saldivar MD Labor and Delivery Nurse:: Yuliet Cotter RNsanipractic physician Nurse:: DWAINE Bo Nursery Nurse:: Siomara Botello RN Social Human Services Assistants/YOGA COORDINATOR: Marianne Enamorado, TAX COMMISSIONER MATERNAL INFORMATION Delivery Anesthesia: Epidural Medications After Delivery: Pitocin 30 Units in 500ml NS/D5W Delivery QBL: 100 Maternal Complications: None Provider Comments: Called to patients room as she was complete and +3 station with urge to push. She pushed through two contractions and delivered a viable male in vertex presentation. After the head delivered a nuchal cord x 1 was noted and reduced. THe shoulders and rest of the body delivered easily. Apgars of 9/9 at one and five minutes respectfully. Infant vigorous and cord clamping delayed for 30 seconds after cord doubly clamped and cut, infant placed on mothers chest. Both mother and infant stable. LABOR SUMMARY EDC: 02/28/2020 00:00 No. Babies in Womb: 1 Attempted: No Labor Anesthesia: Epidural LABOR INFORMATION Reason for Induction: Not Applicable Onset of Labor: 02/28/2020 04:00 Complete Dilatation: 02/28/2020 12:57 Oxytocin: N/A Group B Beta Strep: negative Steroids Given: None Reason Steroids Not Administered: Not Applicable MEMBRANES Membranes Rupture Method: Spontaneous Rupture of Membranes: 02/28/2020 12:57 Length of Rupture (hr): 0.23 Amniotic Fluid Color: Clear Amniotic Fluid Amount: Moderate Amniotic Fluid Odor: Normal STAGES OF LABOR Stage 1 hr: 8 Stage 1 min: 57 Stage 2 hr: 0 Stage 2 min: 14 Stage 3 hr: 0 Stage 3 min: 3 Total Time in Labor hr: 9 Total Time in Labor min: 14 VAGINAL DELIVERY Episiotomy: None Laceration #1: None Other Laceration: bilateral labial Laceration Repair: Yes Laceration Repair Note: Repaired with 3-0 chromic in a running fashion Sponge Count Correct: Yes Sharps Count Correct: Yes CSECTION DELIVERY Primary Indication: N/A Secondary Indication: N/A CSection Incidence: N/A Labor: N/A Elective: N/A CSection Incision: N/A BABY A INFORMATION Delivery Date/Time: 02/28/2020 13:11 Method of Delivery: Vaginal Nurse Controlled Delivery: No Born in Route : No : N/A Forceps: N/A Vacuum Extraction: N/A Shoulder Dystocia : No PRESENTATION/POSITION BABY A Presentation: Cephalic Cephalic Presentation: Vertex Vertex Position: Right Occipital Anterior Breech Presentation: N/A PLACENTA INFORMATION BABY A Placenta Delivery Time : 02/28/2020 13:14 Placenta Method of Delivery: Spontaneous Placenta Status: Delivered SCORES BABY A Heart Rate 1 min: >100 bpm Resp Effort 1 min: Good Cry Reflex Irritability 1 min: Cough or Sneeze or Pulls Away Muscle Tone 1 min: Active Motion Color 1 min: Body [place], Extremities Blue Resuscitation Effort 1 min: Tactile Stimulation SCORE 1 MIN: 9 Heart Rate 5 min: >100 bpm Resp Effort 5 min: Good Cry Reflex Irritability 5 min: Cough or Sneeze or Pulls Away Muscle Tone 5 min: Active Motion Color 5 min: Body [place], Extremities Blue Resuscitation Effort 5 min: N/A SCORE 5 MIN: 9 INFORMATION BABY A Gestational Age at Delivery: 40.0 Gestational Status: Full Term- 39- 40.6 Weeks Infant Outcome : Liveborn Infant Condition : Stable Sex: Male IDENTIFICATION BABY A Verification Date/Time: 02/28/2020 13:21 ID Band Number: [id number] Mother's Name Verified: Yes Infant RN Verifying Infant: SAUTRY Additional Verifying Personnel: BBAIDY WEIGHT/LENGTH BABY A Infant Birthweight (gm): 3452 Weight (lb): 7 Weight (oz): 10 Length (in): 20.00 Length (cm): 50.80 CORD INFORMATION BABY A No. Cord Vessels: 3 Nuchal Cord : Around Neck x1, Loose Cord Blood Taken: Yes-For Storage (Mom's Blood type +) Infant Suction: Mouth ASSESSMENT BABY A Infant Complications: None Physical Findings at Delivery: Bruising Physical Findings- Other: facial bruising Respirations: Appears Normal Skin to Skin: Yes Skin to Skin Time (min): 20 Vision Impaired Teacher/ALS Called : No Infant Care By: George Botello RN Transferred To: Remains with Mother BABY B INFORMATION : N/A SIGNATURES Signature: with User ID: [email or web address] : with User ID: [email or web address]
--- NOTE | 2020-02-28 17:33 | Birth Certificate Data ---
Cert Data Datetime Report Generated by CPN: 02/28/2020 17:33 CERTIFICATE DATA Delivery Provider: Krystal Saldivar MD (02/28/2020 11:05:Yuliet Cotter RN) 47a. Care: No (02/28/2020 11:05:Yuliet Cotter RN) 47b. Date of First Visit: 11/21/2019 00:00 (02/28/2020 11:05:Yuliet Cotter RN) 47c. Date of Last Visit: 02/24/2020 00:00 (02/28/2020 11:05:Yuliet Cotter RN) 47d. Number of Visits: 7 (02/28/2020 11:05:Yuliet Cotter RN) 48a. Number of Prev Live Births: 1 (02/28/2020 11:05:Yuliet Cotter RN) 48b. Now Livin (02/28/2020 11:05:Tracy Auguste RN) 48c. Live Births Now : 0 (02/28/2020 11:05:QS system process) 48d. Date of Last Live : 01/03/2018 00:00 (02/28/2020 11:05:Yuliet Cotter RN) 48e. Losses: 0 (02/28/2020 11:05:Yuliet Cotter RN) RISK FACTORS IN THIS 49a. Diabetes: No (02/28/2020 11:05:Yuliet Cotter RN) 49b. Hypertension: No (02/28/2020 11:05:Yuliet Cotter RN) 49c. Previous Births: 0 (02/28/2020 11:05:Yuliet Cotter RN) 49d. Stillborns: No (02/28/2020 11:05:Yuliet Cotter RN) 49d. IUGR: No (02/28/2020 11:05:Yuliet Cotter RN) 49e. Infertility Treatment: No (02/28/2020 11:05:Yuliet Cotter RN) 49f. Previous Cesareans: 0 (02/28/2020 11:05:Yuliet Cotter RN) Mother's Height 50b. Height Inches: 63 (02/28/2020 17:20:QS system process) Mother's Weight 51a. Pre- Weight (lbs): 112 (02/28/2020 11:05:Yuliet Cotter RN) 51b. Weight at Delivery (lbs): 165 (02/28/2020 13:56:QS system process) Infections Present/Treated 53a. Gonorrhea: No (02/28/2020 11:05:Yuliet Cotter RN) Results this Hospital Visit : Negative (02/28/2020 11:05:Tracy Auguste RN) 53b. Syphilis: No (02/28/2020 11:05:Yuliet Cotter RN) 53c. Chlamydia: No (02/28/2020 11:05:Yuliet Cotter RN) Results this Hospital Visit: Negative (02/28/2020 11:05:Tracy Auguste RN) 53d. Hepatitis B: No (02/28/2020 11:05:Yuliet Cotter RN) Results this Hospital Visit: Negative (02/28/2020 11:05:Yuliet Cotter RN) 53e. Hepatitis C: Negative (02/28/2020 11:05:Tracy Auguste RN) 53h. Mother Tested for HBsAG: Yes (02/28/2020 11:05:Tracy Auguste RN) 53i. Date Tested: 11/21/2019 00:00 (02/28/2020 11:05:Tracy Auguste RN) 53j. Test Result: Negative (02/28/2020 11:05:Yuliet Cotter RN) Obstetric Procedures 54a, b, c. Obstetric Procedures: Ultrasound (02/28/2020 11:05:Yuliet Cotter RN) Cigarette Smoking Cigarette Smoking: Never Smoker. [id number] (02/28/2020 11:05:Yuliet Cotter RN) Onset of Labor 56a. PROM >12 Hrs: 0.23 (02/28/2020 11:05:QS system process) 56b. Precipitous Labor <3 Hrs: 9 (02/28/2020 11:05:QS system process) 56c. Prolonged Labor > 20 Hrs: 9 (02/28/2020 11:05:QS system process) 57a. Induction of Labor: N/A (02/28/2020 11:05:Yuliet Cotter RN) 57c. Non-Vertex Presentation A: Vertex (02/28/2020 11:05:Yuliet oCtter RN) 57d. Steroids - Lung Mat: None (02/28/2020 11:05:Yuliet Cotter RN) 57d. Steroids - Lung Mat: Not Applicable (02/28/2020 11:05:Yuliet Cotter RN) 57g. Moderate/Heavy Meconium: Clear (02/28/2020 12:57:Yuliet Cotter RN) 57h. Intolerance of Labor: N/A (02/28/2020 11:05:Yuliet Cotter RN) : N/A (02/28/2020 11:05:Yuliet Cotter RN) 57i. Epidural/Spinal Anesthesia: Epidural (02/28/2020 11:05:Yuliet Cotter RN) Method of Delivery 58a. Forceps - Unsuccessful A: N/A (02/28/2020 11:05:Yuliet Cotter RN) 58b. Vacuum - Unsuccessful A: N/A (02/28/2020 11:05:Yuliet Cotter RN) 58c. Presentation at 58c. Presentation at - A : Vertex (02/28/2020 11:05:Yuliet Cotter RN) 58c. Presentation at - A : N/A (02/28/2020 11:05:Yuliet Cotter RN) 58c. Presentation at - A : Cephalic (02/28/2020 11:05:Yuliet Cotter RN) Final Route and Method of Del 58d. Baby A Route/Delivery: Vaginal (02/28/2020 13:11:Yuliet Cotter RN) 58e. Trial of Labor Attempted: No (02/28/2020 11:05:Yuliet Cotter RN) 58e. Trial of Labor Attempted A: N/A (02/28/2020 11:05:Yuliet Cotter RN) 58e. Trial of Labor Attempted B: N/A (02/28/2020 11:05:Yuliet Cotter RN) Maternal Morbidity 59b. 3rd or 4th Degree Lacs: None (02/28/2020 11:05:Yuliet Cotter RN) 59b. 3rd or 4th Degree Lacs: N/A (02/28/2020 11:05:Yuliet Cotter RN) 59b. 3rd or 4th Degree Lacs: bilateral labial (02/28/2020 11:05:Yuliet Cotter RN) Birthweight Baby A: 3452 (02/28/2020 11:05:Siomara Botello RN) 60a. Pounds : 7 (02/28/2020 11:05:QS system process) 60b. Ounces: 10 (02/28/2020 11:05:QS system process) 61. GA at Delivery Baby A: 40.0 (02/28/2020 11:05:Yuliet Cotter RN) : Full Term- 39- 40.6 Weeks (02/28/2020 11:05:QS system process) 62a. 5 Minute Baby A: 9 (02/28/2020 11:05:QS system process)
[2020-02-28] MEDS: DOCUSATE SODIUM 100 MG CAPSULE PO SCH (18:17)
[2020-02-28] MEDS: FERROUS SULFATE 325 MG TABLET PO SCH (18:17)
[2020-02-28] MEDS: FAMOTIDINE 20 MG TABLET PO SCH (22:49)
[2020-02-28] MEDS: IBUPROFEN 800 MG TABLET PO SCH (22:49)
[2020-02-29] MEDS: IBUPROFEN 800 MG TABLET PO SCH ×4 (06:57→22:23)
--- NOTE | 2020-02-29 10:31 | PDOC PROGRESS REPORT ---
Subjective-OB Progress Note for:: 02/29/20 - PP Day #1, doing well, , A negative, Rubella immune, IOB , voiding Physical Exam (OB) Vital Signs: Temp Pulse Resp BP Pulse Ox 98.2 F 81 18 132/68 H 100 02/28/20 22:00 02/28/20 19:51 02/28/20 19:51 02/28/20 19:51 02/28/20 19:51 Intake & Output 02/28/20 02/29/20 03/01/20 06:59 06:59 06:59 Intake Total 1200 Balance 1200 Weight 75 kg - General General Appearance: Appears well, Alert In distress: None - PIH/Pre-Eclampsia DTR's: 2 + Clonus: Negative Headache: Absent Epigastric Pain: No Visual Changes: No - Maternal Morbidity 59. Maternal Morbidity (serious complications experinced by the mother associated with labor and delivery: None of the above - Lochia Lochia Amount: Small 10-25 ml Lochia Color: Rubra/Red - Abdomen Description: Soft, Round Hernia Present: No Fundal Description: Firm, Midline Fundal Height: u/u - u/2 - Respiratory Respiratory Status: No respiratory distress - Abdominal Distension: No distension Tenderness: Nontender - Genitourinary Genitourinary Note: voiding - Extremities Upper extremity: Normal inspection Lower extremities: Normal inspection - Neurological Cognition: Normal Orientation: AAOx4 - Psychological Associated symptoms: Normal affect - Skin Skin Temperature: Warm Skin Moisture: Dry Objective-Diagnostic Laboratory: 02/28/20 13:41 02/28/20 02/28/20 02/28/20 11:41 11:41 12:45 WBC 18.2 H RBC 3.86 Hgb 10.8 L Hct 32.2 L MCV 84 MCH 27.9 MCHC 33.5 RDW 13.6 Plt Count 222 Seg Neutrophils % 79.6 H Urine Color YELLOW Urine Appearance CLEAR Urine pH 6.0 Ur Specific [place] 1.026 Urine Protein 100 H Urine Glucose (UA) NEGATIVE Urine Ketones 80 H Urine Blood NEGATIVE Urine Nitrite NEGATIVE Ur Leukocyte Esterase NEGATIVE Blood Type A NEGATIVE Antibody Screen POSITIVE 02/28/20 02/29/20 13:41 06:28 WBC 19.5 H RBC 3.72 Hgb 10.3 L Hct 31.5 L MCV 85 MCH 27.8 MCHC 32.8 RDW 13.5 Plt Count 187 Seg Neutrophils % Urine Color Urine Appearance Urine pH Ur Specific [place] Urine Protein Urine Glucose (UA) Urine Ketones Urine Blood Urine Nitrite Ur Leukocyte Esterase Blood Type A NEGATIVE Antibody Screen Assessment and Plan(PN) - Assessment and Plan (1) Active labor Is this a current diagnosis for this admission?: Yes (2) Normal vaginal delivery Is this a current diagnosis for this admission?: Yes (3) Poor patient attendance of care Is this a current diagnosis for this admission?: Yes (4) Rh negative status during Qualifiers: Trimester: third trimester Qualified Code(s): O26.893 - Other specified related conditions, third trimester; Z67.91 - Unspecified blood type, Rh negative Is this a current diagnosis for this admission?: Yes Plan:: Repeat CBC in the am for elevated WBC. Ambulation encouraged, Routine PP orders - Time Spent with Patient Time with patient: Less than 15 minutes Medications reviewed and adjusted accordingly: Yes - Disposition Anticipated Discharge Disposition: Home, Self Care Anticipated Discharge Timeframe: within 24 hours
[2020-02-29] MEDS: PRENATAL VITAMIN W DHA CAPSULE PO SCH (13:04)
[2020-02-29] MEDS: FAMOTIDINE 20 MG TABLET PO SCH ×2 (13:04→22:23)
[2020-02-29] MEDS: DOCUSATE SODIUM 100 MG CAPSULE PO SCH ×2 (13:05→17:30)
[2020-02-29] MEDS: SENNOSIDES/DOCUSATE 8.6-50 MG 1 EACH TABLET PO SCH (13:05)
[2020-02-29] MEDS: FERROUS SULFATE 325 MG TABLET PO SCH ×2 (13:05→17:30)
[2020-03-01] MEDS: IBUPROFEN 800 MG TABLET PO SCH (05:03)
[2020-03-01 08:43] VITALS: BP 112/74
[2020-03-01] MEDS: FAMOTIDINE 20 MG TABLET PO SCH (11:10)
[2020-03-01] MEDS: PRENATAL VITAMIN W DHA CAPSULE PO SCH (11:10)
[2020-03-01] MEDS: DOCUSATE SODIUM 100 MG CAPSULE PO SCH (11:10)
[2020-03-01] MEDS: SENNOSIDES/DOCUSATE 8.6-50 MG 1 EACH TABLET PO SCH (11:11)
[2020-03-01] MEDS: FERROUS SULFATE 325 MG TABLET PO SCH (11:11)
--- NOTE | 2020-03-01 13:21 | PDOC DISCHARGE SUMMARY ---
Impression - Admit/DC Date/PCP Admission Date/Primary Care Provider: 02/28/20 11:14 Discharge Date: 03/01/20 - Discharge Diagnosis (1) Active labor Is this a current diagnosis for this admission?: Yes (2) Normal vaginal delivery Is this a current diagnosis for this admission?: Yes (3) Poor patient attendance of care Is this a current diagnosis for this admission?: Yes (4) Rh negative status during Is this a current diagnosis for this admission?: Yes (5) Susceptible varicella Is this a current diagnosis for this admission?: Yes - Additional Information Home Medications: Prenat 115/Iron Fum/Folic/Dss [ 19 Tablet] 1 each PO DAILY 09/25/17 Hospital Course 59. Maternal Morbidity (serious complications experinced by the mother associat ed with labor and delivery: None of the above Results Laboratory Results: WBC 19.5 10^3/uL (4.0-10.5) H 02/28/20 13:41 RBC 3.72 10^6/uL (3.72-5.28) 02/28/20 13:41 Hgb 10.3 g/dL (12.0-15.5) L 02/28/20 13:41 Hct 31.5 % (36.0-47.0) L 02/28/20 13:41 MCV 85 fl (80-97) 02/28/20 13:41 MCH 27.8 pg (27.0-33.4) 02/28/20 13:41 MCHC 32.8 g/dL (32.0-36.0) 02/28/20 13:41 RDW 13.5 % (11.5-14.0) 02/28/20 13:41 Plt Count 187 10^3/uL (150-450) 02/28/20 13:41 Lymph % (Auto) 12.9 % (13-45) L 02/28/20 11:41 [place] % (Auto) 6.4 % (3-13) 02/28/20 11:41 Eos % (Auto) 0.3 % (0-6) 02/28/20 11:41 Baso % (Auto) 0.8 % (0-2) 02/28/20 11:41 Absolute Neuts (auto) 14.5 10^3/uL (1.7-8.2) H 02/28/20 11:41 Absolute Lymphs (auto) 2.3 10^3/uL (0.5-4.7) 02/28/20 11:41 Absolute Monos (auto) 1.2 10^3/uL (0.1-1.4) 02/28/20 11:41 Absolute Eos (auto) 0.1 10^3/uL (0.0-0.6) 02/28/20 11:41 Absolute Basos (auto) 0.1 10^3/uL (0.0-0.2) 02/28/20 11:41 Seg Neutrophils % 79.6 % (42-78) H 02/28/20 11:41 Urine Color YELLOW 02/28/20 12:45 Urine Appearance CLEAR 02/28/20 12:45 Urine pH 6.0 (5.0-9.0) 02/28/20 12:45 Ur Specific [place] 1.026 02/28/20 12:45 Urine Protein 100 mg/dL (NEGATIVE) H 02/28/20 12:45 Urine Glucose (UA) NEGATIVE mg/dL (NEGATIVE) 02/28/20 12:45 Urine Ketones 80 mg/dL (NEGATIVE) H 02/28/20 12:45 Urine Blood NEGATIVE (NEGATIVE) 02/28/20 12:45 Urine Nitrite NEGATIVE (NEGATIVE) 02/28/20 12:45 Urine Bilirubin NEGATIVE (NEGATIVE) 02/28/20 12:45 Urine Urobilinogen NEGATIVE mg/dL (<2.0) 02/28/20 12:45 Ur Leukocyte Esterase NEGATIVE (NEGATIVE) 02/28/20 12:45 Urine Ascorbic Acid NEGATIVE (NEGATIVE) 02/28/20 12:45 Urine Opiates Screen NEGATIVE 02/28/20 12:45 Urine Methadone Screen NEGATIVE 02/28/20 12:45 Ur Barbiturates Screen NEGATIVE 02/28/20 12:45 Ur Phencyclidine Scrn NEGATIVE 02/28/20 12:45 Ur Amphetamines Screen NEGATIVE 02/28/20 12:45 U Benzodiazepines Scrn NEGATIVE 02/28/20 12:45 Urine Cocaine Screen NEGATIVE 02/28/20 12:45 U Marijuana (THC) Screen NEGATIVE 02/28/20 12:45 RPR NONREACTIVE (NONREACTIVE) 02/28/20 11:41 Blood Type A NEGATIVE 12/13/20 06:28 Antibody Screen POSITIVE 02/28/20 11:41 Antibody Identification RHOGAM INDUCED ANTI-D 02/28/20 11:41 Screen NEGATIVE 02/29/20 06:28 Rhogam Indicated Cancelled 02/29/20 06:28 Plan Plan of Treatment: follow up in 4 weeks at [facility] for post check
== END 2020-03-01 15:20 | disposition home or self-care (01) | DRG 807 ==
LOC: LC 10:56 → LR 11:14 → 2S 17:20
PROVIDERS: ADMIT Obstetrics & Gynecology; ATTEND Obstetrics & Gynecology
PROC: 10E0XZZ Delivery of Products of Conception, External Approach (ICD-10-PCS; principal; 2020-02-28)
PROC: 3E0334Z Introduction of Serum, Toxoid and Vaccine into Peripheral Vein, Percutaneous Approach (ICD-10-PCS; 2020-02-28)
PROC: 0UQMXZZ Repair Vulva, External Approach (ICD-10-PCS; 2020-02-28)
DX: O36.0930 Maternal care for other rhesus isoimmunization, third trimester, not applicable or unspecified (principal); Z37.0 Single live birth; O69.81X0 Labor and delivery complicated by cord around neck, without compression, not applicable or unspecified; O70.0 First degree perineal laceration during delivery; Z3A.40 40 weeks gestation of pregnancy; Z91.018 Allergy to other foods
CPT/HCPCS: 1967; 36415; 80307; 81005; 85025; 85461; 86592; 86850; 86870; 86900; 86901; 94760; J2590; J2790; J2795; J3010; J3490